=== PATIENT | male | born 1990 | race Hispanic/Latino ===

== ENCOUNTER 2018-03-12 14:38 | Outpatient (CLI) | payer OTHER ==
--- NOTE | 2018-03-12 16:12 | ULT ---
SOFT TISSUE ULTRASOUND: History: Left arm abscess x one year. Erythema and fever x 2 days. History of bilateral axillary and lymphadenopathy x 2 months. Comparison: None. Technique: Targeted sonographic imaging of the right and left axilla is performed. FINDINGS: There are enlarged bilateral axillary lymph nodes. Right axillary lymph node measures 2.1 x 2.8 x 2.9 cm. An additional right axillary lymph node measures 1.5 x 0.9 x 1.0 cm. There is enlarged left axil jeremias lymph node measuring 3.9 x 3.7 x 2.4 cm. There is a second left axillary lymph node measuring 3. 8 x 2.6 x 3.0 cm. Left forearm demonstrates a hypoechoic focus with some internal flow measuring 3.2 x 5.8 x 6.5 cm. IMPRESSION: 1. Enlarged bilateral axillary lymph nodes. 2. Hypoechoic mass in the left forearm soft tissue with vascular flow. 3. Further interrogation with a left upper extremity MRI is recommended to assess the left forearm le marichuy, given internal flow. 4. Lymphadenopathy maybe reactive vs lymphoma vs metastatic disease. Chest, abdomen, and pelvic CT a re recommended to assess lymph nodes for possible lymphoma in the appropriate clinical setting. POS: [facility]
== END 2018-03-12 14:39 | disposition home or self-care (01) ==
LOC: NAV ULT 14:38
PROVIDERS: ATTEND Family Medicine
DX: L02.414 Cutaneous abscess of left upper limb (principal); R59.0 Localized enlarged lymph nodes; R22.32 Localized swelling, mass and lump, left upper limb
CPT/HCPCS: 76999

== ENCOUNTER 2018-03-18 14:31 | Outpatient (CLI) | payer OTHER ==
--- NOTE | 2018-03-18 17:12 | CT ---
CT CHEST WITH CONTRAST CT ABDOMEN WITH CONTRAST: Date: 03/18/18 COMPARISON: Soft tissue ultrasound dated 03/12/18. HISTORY: Bilateral enlarged axillary lymph nodes. TECHNIQUE: 1. Multiple contiguous axial images were obtained in a CT of the chest with contrast. Coronal reform ats were performed. 2. Multiple contiguous axial images were obtained in a CT of the abdomen only with contrast. PO cont rast was administered. Coronal reformats were performed. FINDINGS: CT CHEST: The heart is upper limits of normal in size. No hilar or mediastinal lymphadenopathy are present. The re is a small amount of soft tissue density in the anterior mediastinum measuring 2.4 cm in greatest dimension. This may represent residual thymus as it is slightly lobulated in appearance. There are bi lateral enlarged axillary lymph nodes, left greater than right. The largest node measures 4.0 cm in g reatest dimension. There are multiple areas of consolidation in the left lower lobe of the lungs. No infiltrates are oth erwise seen in the lungs. No suspicious pulmonary masses are seen. No pneumothorax or pleural effusio n present. The bones of the thorax are unremarkable. Chest wall soft tissues are unremarkable. CT ABDOMEN: The liver, gallbladder, kidneys, adrenal glands, and pancreas are unremarkable. The spleen is enlarge d, measuring 22.1 cm in length. The visualized large and small bowel are unremarkable. The appendix is normal. No abdominal adenopath y is appreciated. The bones of the lumbar spine and pelvis are unremarkable. Abdominal wall soft tissues are unremarkab le. IMPRESSION: 1. Enlarged bilateral axillary lymph nodes. 2. Soft tissue density mass in the anterior mediastinum most likely represents residual thymus. 3. Multifocal air space opacities in the left lower lobe, likely represent a left lower lobe infiltr ate. 4. Splenomegaly. POS: [facility]
== END 2018-03-18 14:32 | disposition home or self-care (01) ==
LOC: NAV CT 14:31
PROVIDERS: ATTEND Family Medicine
DX: R59.0 Localized enlarged lymph nodes (principal); R91.8 Other nonspecific abnormal finding of lung field; R16.1 Splenomegaly, not elsewhere classified
CPT/HCPCS: 71260; 74160